=== PATIENT | female | born 1985 | race Caucasian/White ===

== ENCOUNTER 2022-03-08 09:11 | Emergency (ER) | payer BC, SELFPAY ==
[2022-03-08] VITALS (9 sets, daily range): BP systolic 98–114; BP diastolic 57–82; PULSE 69–99; RESP 16–24; TEMP 36.1–37.3; O2SAT 97–100; BMI 25.5
--- NOTE | 2022-03-08 09:39 | CT_ITS ---
Final Report Patient: SAM OSBORNE Facility:?[facility] Patient ID:?[id number] Site Patient ID:?[id number]. Site :?[id number] Study:?CT Abdomen/Pelvis WITHOUT-03/08/2022 10:29:29 AM Ordering Physician:Gunjan Lawson Final Report: INDICATION: Right flank pain. TECHNIQUE: Volumetric helical scanning of the abdomen and pelvis was performed without contrast material. Coronal and sagittal reconstructions were obtained. COMPARISON: Abdomen/pelvis CT of 03/31/2015. FINDINGS: Acutely obstructing 3 mm distal right ureteral stone is demonstrated within 1 cm of the ureterovesical junction. Mild right hydroureter and hydronephrosis is noted lung with periureteral and perinephric stranding. No other stone is apparent. The right kidney is enlarged due to the obstruction. The kidneys are otherwise unremarkable. The bladder is grossly negative. The uterus and ovaries are negative. The liver is normal in size, shape and attenuation. No bile duct dilation is evident. The spleen is within normal limits. The adrenal glands are unremarkable. The pancreas is within normal limits. No lymphadenopathy is evident. No free fluid is demonstrated. The bowel is unremarkable. The lung bases are essentially clear, and heart size is normal. IMPRESSION: Acutely obstructing 3 mm distal right ureteral stone within 1 cm of the UVJ. Please note that all CT scans at this facility use dose modulation, iterative reconstruction, and/or weight-based dosing when appropriate to reduce radiation dose to as low as reasonably achievable. Dictated by Andres Villareal MD @ 03/08/2022 11:38:27 AM (Electronic Signature)
--- NOTE | 2022-03-08 09:41 | ED.ABDPAIN ---
HPI - Abdominal Pain General Chief Complaint: Flank Pain Stated Complaint: Vomitting and intense lower back and R side pain Time Seen by Provider: 03/08/22 09:37 History of Present Illness HPI narrative: This 36-year-old female comes in with severe right flank pain and abdominal pain that began an hour to prior to arrival. Pain is severe. She can not get comfortable. She does not have any prior history of kidney stones. Prior to this she has been in good health. She denies any possibility of being . Related Data Previous Rx's Medication Instructions Recorded hydrocodone 5 mg-acetaminophen 325 1 tab PO Q4-6H PRN #20 tab 03/08/22 mg tablet ketorolac 10 mg tablet 10 mg PO TID #15 tab 03/08/22 ondansetron HCl 4 mg tablet 4 mg PO Q6H #20 tab 03/08/22 Allergies Allergy/AdvReac Type Severity Reaction Status Date / Time No Known Allergies Allergy Verified 03/08/22 09:45 Review of Systems Status of ROS Reports: 10 or more systems reviewed and unremarkable except as noted in History and below Narrative Constitutional: No fevers, no weight gain or loss. Eyes: No discharge. No vision changes. HENT: No congestion, no sore throat, no ear pain. Cardiovascular: No chest pain, no palpitations. Respiratory: No shortness of breath, no wheezes, no cough. Gastrointestinal: Severe abdominal pain on the right side with right flank pain as described above. Genitourinary: No dysuria, no hematuria. Musculoskeletal: Normal range of motion. Skin: No rashes, no pruritis. Neurological: No dizziness, weakness, sensory change, speech change. Endo/Heme/Allergies: No bruising or bleeding. No polydipsia. Pysch: no suicidality, no anxiety, no insomnia. All other systems reviewed and are negative. [facility] Medical History (Updated 03/08/22 @ 12:40 by Renny Emerson MD) Cancer Hernia Hernia, inguinal Lymph node cancer Social History Smoking Status: Current some day smoker What tobacco products do you use: cigarettes Do you use any of these nicotine containing products: None Second hand tobacco smoke exposure: No How often do you have a drink containing alcohol: never How often do you have six or more drinks on one occasion: Never AUDIT-C Alcohol total score: 0 Non-prescribed substance use: denies use service: No Exam Narrative: Exam Narrative: Constitutional: Well-developed, well-nourished, no acute distress. HEENT: Normocephalic, atraumatic. Neck: Normal range of motion. Nontender. Supple. Heart: Regular. No murmurs. Normal rate. Intact distal pulses. Lungs: Clear to auscultation. No chest discomfort. No wheezes, rhonchi, or rales. Abdomen: Normal bowel sounds. Right-sided abdominal pain and right flank pain. Pain is reproduced when palpating or percussing over the right flank. Genitalia: Deferred. Back: No midline tenderness. Normal range of motion. Extremities: Normal range of motion. No injury. Skin: Intact. No rash. Warm. No erythema or pallor. Neurologic: No altered sensation. No weakness. Alert and oriented. Psychiatric: No suicidality. No anxiety or depression. No insomnia. Nursing notes and vitals signs are reviewed. Const: Vital Signs, click to edit/add: Vital Signs - 24 hr 03/08/22 09:31 03/08/22 10:00 03/08/22 10:30 Temperature 96.9 F L Pulse Rate [Pulse Oximeter] 76 76 69 Respiratory Rate 24 Blood Pressure [Le ft Upper Arm] 114/73 113/82 102/69 Pulse Oximetry 100 98 98 03/08/22 11:00 Temperature Pulse Rate [Pulse Oximeter] 74 Respiratory Rate 16 Blood Pressure [Le ft Upper Arm] 98/57 L Pulse Oximetry 99 Course Vital Signs Vital signs: Initial Vital Signs Temperature 96.9 F L 03/08/22 09:31 Temperature Source Temporal Artery Scan 03/08/22 09:31 Pulse Rate 76 03/08/22 09:31 Pulse Rhythm 03/08/22 09:31 Respiratory Rate 24 03/08/22 09:31 Blood Pressure 114/73 03/08/22 09:31 Blood Pressure Mean 86 03/08/22 09:31 Pulse Oximetry 100 03/08/22 09:31 Oxygen Delivery Method 03/08/22 09:31 Vital Signs Temperature 96.9 F L 03/08/22 09:31 Pulse Rate 76 03/08/22 09:31 Respiratory Rate 24 03/08/22 09:31 Blood Pressure 114/73 03/08/22 09:31 Pulse Oximetry 100 03/08/22 09:31 Temperature 96.9 F L 03/08/22 09:31 Pulse Rate 74 03/08/22 11:00 Respiratory Rate 16 03/08/22 11:00 Blood Pressure 98/57 L 03/08/22 11:00 Pulse Oximetry 99 03/08/22 11:00 MDM - Abdominal Pain MDM Narrative Medical decision making narrative: This patient comes in with severe right-sided flank and abdominal pain. It is suspicious for a kidney stone although she has never had a prior kidney stone in her past history. An IV was established where she received 30 mg of Toradol, 0.5 mg of Dilaudid, and 4 mg of Zofran. This brought sufficient relief but she did need a couple more doses of Dilaudid throughout the course of her stay here. CT scan of the abdomen and pelvis does show evidence of a 3 mm stone at the right ureterovesical junction. There are no other complications found on those images. Urinalysis shows no sign of infection. informed the patient regarding kidney stones and matters pertaining to prognosis and lifestyle. She is okay to be discharged home and encouraged to return if pain is not adequately controlled. She did received prescriptions for Toradol, [place], and Zofran. Lab Data Labs: Lab Results 03/08/22 03/08/22 03/08/22 Range/Units 09:35 09:35 11:40 WBC 18.82 H (4.50-11.00) K/uL RBC 4.95 (4.00-5.20) m/uL Hgb 14.7 (12.0-16.0) gm/dL Hct 44.8 (33.0-51.0) % MCV 91 (80-100) fL MCH 30 (26-34) pg MCHC 33 (32-36) gm/dL RDW Coeff of Diya 13.8 (11.5-15.5) % Plt Count 196 (140-440) K/uL Neut % (Auto) 85.4 H (42.0-72.0) % Lymph % (Auto) 9.0 L (20-44) % Mckenzie % (Auto) 4.5 (0.0-11.0) % Eos % (Auto) 0.7 (0.0-7.0) % Baso % (Auto) 0.1 (0.0-3.0) % Neut # (Auto) 16.10 H (1.7-7.0) K/uL Lymph # (Auto) 1.70 (0.90-2.90) K/uL Mckenzie # (Auto) 0.80 (0.00-0.90) K/UL Eos # (Auto) 0.10 (0.00-0.50) K/uL Baso # (Auto) 0.00 (0.00-0.30) K/uL Abs Immat Gran (auto) 0.05 (0.00-0.30) K/uL Sodium 138 (135-149) mmol/L Potassium 4.0 (3.6-5.1) mmol/L Chloride 107 (96-114) mmol/L Carbon Dioxide 23 (20-32) mmol/L BUN 10 (5-24) mg/dL Creatinine 0.7 (0.5-1.5) mg/dL Estimated Creat Clear 85.45 Glucose 95 (60-115) mg/dL Calcium 8.9 (8.4-10.6) mg/dL Total Bilirubin 0.3 (0.1-1.5) mg/dL Direct Bilirubin 0.3 (0.0-0.5) mg/dL AST 40 H (12-35) U/L ALT 23 (4-35) U/L Alkaline Phosphatase 75 (40-150) U/L Total Protein 6.8 (6.0-8.3) g/dL Albumin 4.2 (3.3-5.0) g/dL Lipase 38 (23-300) U/L Urine Color Yellow (Yellow) Urine Appearance Clear (Clear) Urine pH 5.0 (5.0-8.5) Ur Specific [place] 1.020 (1.000-1.030) Urine Protein Negative (Negative) Urine Glucose (UA) Negative (Negative) Urine Ketones Negative (Negative) Urine Blood Negative (Negative) Urine Nitrite Negative (Negative) Urine Bilirubin Negative (Negative) Urine Urobilinogen 0.2 (0.2-1.0) Ur Leukocyte Esterase Negative (Negative) Urine RBC 0-2 (0-2) Urine WBC 0-2 (0-5) Ur Squamous Epith Cells Few (None-Few) Urine Bacteria None (None) Urine Mucus Few A (None) Imaging Data CT scan - abdomen: Radiologist's impression: Acutely obstructing 3 mm distal right ureteral stone within 1 cm of the UVJ. Discharge Plan Discharge Clinical Impression: Calculus of kidney Condition: Improved Instructions: Kidney Stones (ED) Additional Instructions: Ureteral calculus. Take medication as needed and prescribed. Follow up with MD or return if recurrent or worsening symptoms happen. Prescriptions: New ondansetron HCl 4 mg tablet 4 mg PO Q6H Qty: 20 0RF ketorolac 10 mg tablet 10 mg PO TID Qty: 15 0RF hydrocodone-acetaminophen 5-325 mg tablet 1 tab PO Q4-6H PRN (Reason: pain) Qty: 20 0RF Follow Up/Referrals: Larry Ambrosio MD [Primary Care Provider] - Stand Alone Forms: [facility] Info Instructions
[2022-03-08] MEDS: KETOROLAC 30 MG/ML inj IVP (09:53)
[2022-03-08] MEDS: HYDROmorphone 0.5 mg/0.5 ml inj IVP ×3 (09:55→11:59)
[2022-03-08] MEDS: ONDANSETRON 2 MG/ML inj 4 MG IVP (09:56)
[2022-03-08 11:37] LABS: Basophils Percent Auto 0.1 % (0.0-3.0); Eosinophils Percent Auto 0.7 % (0.0-7.0); Hematocrit 44.8 % (33.0-51.0); Hemoglobin* 14.7 gm/dL (12.0-16.0); Immature Granulocytes Abs Auto 0.05 K/uL (0.00-0.30); Mean Corpuscular HGB Conc 33 gm/dL (32-36); Mean Corpuscular Hemoglobin 30 pg (26-34); Mean Corpuscular Volume 91 fL (80-100); Monocytes Percent Auto 4.5 % (0.0-11.0); Neutrophils Percent Auto 85.4 % (42.0-72.0); Platelet Count* 196 K/uL (140-440); RDW Coefficient of Variation % 13.8 % (11.5-15.5); Red Blood Count 4.95 m/uL (4.00-5.20); White Blood Count* 18.82 K/uL (4.50-11.00)
[2022-03-08 11:39] LABS: Slide Review Reflex No
[2022-03-08 11:40] LABS: Albumin* 4.2 g/dL (3.3-5.0)
[2022-03-08 11:41] LABS: Chloride* 107 mmol/L (96-114); Sodium* 138 mmol/L (135-149)
[2022-03-08 11:43] LABS: Bilirubin Direct* 0.3 mg/dL (0.0-0.5); Bilirubin Total* 0.3 mg/dL (0.1-1.5); Carbon Dioxide* 23 mmol/L (20-32); Creatinine* 0.7 mg/dL (0.5-1.5); Est. Creatinine Clearance* 85.45; Estimated Glomerular Filt Rate 116.31; Total Protein* 6.8 g/dL (6.0-8.3)
[2022-03-08 11:44] LABS: Alanine Aminotransferase* 23 U/L (4-35); Alkaline Phosphatase* 75 U/L (40-150); Aspartate Amino Transferase* 40 U/L (12-35); Blood Urea Nitrogen* 10 mg/dL (5-24); Calcium* 8.9 mg/dL (8.4-10.6); Glucose* 95 mg/dL (60-115); Lipase* 38 U/L (23-300)
[2022-03-08 11:49] LABS: Appearance Urine Clear (Clear); Bilirubin Urine Negative (Negative); Blood Urine Negative (Negative); Color Urine Yellow (Yellow); Glucose Urine Negative (Negative); Ketones Urine Negative (Negative); Leukocyte Esterase Urine Negative (Negative); Nitrite Urine Negative (Negative); Protein Urine Negative (Negative); Urobilinogen Urine 0.2 (0.2-1.0)
[2022-03-08 12:01] LABS: Mucus Urine Few; RBC Urine 0-2 (0-2); Squamous Epithelial Cell Urine Few (None-Few); WBC Urine 0-2 (0-5)
--- NOTE | 2022-03-08 13:44 | ED.NURSE ---
needed to have rxs for [facility]. did get written rxs for meds. insty med was unabe to dispense here.
== END 2022-03-08 13:40 | disposition home or self-care (01) ==
PROVIDERS: Emergency Provider Emergency Medicine Emergency Medical Services; PCP Family Medicine
DX: N20.0 Calculus of kidney (principal)
CPT/HCPCS: 36415; 74176; 80048; 80076; 81001; 83690; 85025; 96374; 96375; 96376; 99284; 99285; J1170; J1885; J2405